=== PATIENT | male | born 1960 | race Caucasian/White ===

== ENCOUNTER 2017-07-22 07:52 | Day surgery (SDC) | payer OTHER ==
[2017-07-22] MEDS ORDERED: diphenhydrAMINE 25 MG CAP PO ONE ×2 (07:58→08:31)
[2017-07-22] MEDS ORDERED: NS 1,000 ML IV ONE (07:58)
[2017-07-22] MEDS ORDERED: ASPIRIN EC 325 MG TAB PO ONE ×2 (07:58→08:31)
[2017-07-22] MEDS ORDERED: DIAZEPAM 5 MG TAB PO ONE (07:58)
[2017-07-22] MEDS ORDERED: FAMOTIDINE 20 MG TAB PO ONE (07:58)
--- NOTE | 2017-07-22 08:26 | CPEKG ---
Heart Rate: 65 RR Interval: 923 P-R Interval: 132 QRSD Interval: 96 QT Interval: 404 QTC Interval: 421 P [place]: 66 QRS [place]: 72 T Wave [place]: 62 EKG Severity - NORMAL ECG - EKG Impression: SINUS RHYTHM Electronically Signed By: Hang Cerrato 23-Jul-2017 13:13:37
[2017-07-22] MEDS ORDERED: FAMOTIDINE 20 MG TAB ONE (08:31)
[2017-07-22] MEDS ORDERED: DIAZEPAM 5 MG TAB ONE (08:31)
[2017-07-22 08:37] LABS: % IMMATURE GRANULYOCYTES 0.2 % (0.0-1.1); ABSOLUTE IMMATURE GRANULOCYTES 0.01 10^3/uL (0.00-0.10); ADD DIFF? NO; ADD MORPH? NO; ADD SCAN? NO; ATYPICAL LYMPHOCYTE FLAG 0 (0-99); FRAGMENT RBC FLAG 0 (0-99); HEMOGLOBIN 15.8 g/dL (13.7-17.5); LEFT SHIFT FLG 0 (0-99); LIPEMIA HEMOLYSIS FLAG 90 (0-99); MEAN CELL HEMOGLOBIN 32.2 pg (27.9-34.1); MEAN CELL HEMOGLOBIN CONCENTR. 35.1 g/dL (32.4-36.7); MEAN CELL VOLUME 91.8 fL (81.5-99.8); MEAN PLATELET VOLUME 9.8 fL (8.7-11.7); PLATELET CLUMPS FLAG 10 (0-99); PLATELET COUNT 265 10^3/uL (150-400); RED CELL DISTRIBUTION WIDTH 12.8 % (11.5-15.2)
[2017-07-22 08:49] LABS: INR 1.07 (0.83-1.16); PROTIME(PATIENT) 13.8 SEC (12.0-15.0)
[2017-07-22 08:52] LABS: ANION GAP 10 mEq/L (8-16); CALCIUM 9.4 mg/dL (8.5-10.4); CARBON DIOXIDE 27 mEq/l (22-31); CHLORIDE 103 mEq/L (97-110); CHOLESTEROL 137 mg/dL (140-220); CHOLESTEROL/HDL RATIO 2.04 RATIO (1.00-4.97); CREATININE 0.9 mg/dL (0.7-1.3); GLOMERULAR FILTRATION RATE > 60; GLUCOSE 87 mg/dL (70-100); HIGH DENSITY LIPOPROTEIN 67 mg/dL (40-65); LDL/HDL RATIO 0.85 RATIO (1.00-3.64); LOW DENSITY LIPOPROTEIN 57 mg/dL (80-100); MAGNESIUM 2.1 mg/dL (1.6-2.3); NON-HIGH DENSITY LIPOPROTEIN 70 mg/dL (90-129); POTASSIUM 4.3 mEq/L (3.5-5.2); SODIUM 140 mEq/L (134-144); TRIGLYCERIDE 65 mg/dL (40-150); VERY LOW DENSITY LIPOPROTEINS 13 mg/dL (8-25)
[2017-07-22] MEDS ORDERED: fentaNYL 100 MCG/2 ML INJ ONE (09:06)
[2017-07-22] MEDS ORDERED: LIDOCAINE 1% 300 MG/30 ML SDV ONE (09:06)
[2017-07-22] MEDS ORDERED: MIDAZOLAM 2 MG/2 ML VIAL ONE (09:07)
[2017-07-22] MEDS ORDERED: VERAPAMIL 5 MG/2 ML VIAL ONE (09:07)
[2017-07-22] MEDS ORDERED: HEPARIN 10,000 UNIT/10 ML MDV ONE (09:07)
[2017-07-22] MEDS ORDERED: IOPAMIDOL (ISOVUE-370) 150 ML BTL IV ONE (09:07)
--- NOTE | 2017-07-22 09:41 | PDPROPOC ---
Sedation Plan of Care Sedation Plan of Care: vital signs stable, mental status noted, patient educated of risks, benefits, alternatives, patient can tolerate sedation ASA Classification: ASA 2 Planned drugs: fentanyl, midazolam Mallampati Score: Class 1 Mallampati Reference Image: Patient passed 3-3-2 rule?: Yes
--- NOTE | 2017-07-22 09:41 | PDHPUP ---
History & Physical Update H&P update statement: This history and physical update is based on an assessment of the patient which was completed after admission or registration (within 24 hours), but prior to the surgery/procedure. H&P update: H&P reviewed & patient examined, no change in patient's condition since H&P completed (Diagnostic angiogram only.)
--- NOTE | 2017-07-22 10:11 | PDDXCAT ---
Diagnostic Cath Note - . Date: 07/22/17 [employer] [employer] Operator: Harry Indication: Class I/II angina, intolerance to med therapy or failure to respond High-risk criteria on non-invasive testing: high-risk treadmill score (score<=- 11) - Procedure Access: right wrist Procedure: left heart catheterization, coronary angiography, left ventriculogram - Materials Left Heart Cath size: 5F Left Heart Cath materials: pigtail, other ([email or web address]) - Findings-Left Heart Catheterization LM: Unobstructed LAD: Luminal irregularities. LCX: Unobstructed. RCA: 40% mid RCA EDP: 12mmHg LVEF: 65% Wall motion: normal Complications: none Estimated blood loss: <50ml Closure method: TR Band Assessment: Procedure: See atached computer report. Contrast 85cc. Radiation: 3.1 minutes, 840mGy. Sedation: 25 ug fentanyl. 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 Normal LV systolic function. Plan: Aggressive medical therapy. Patient Problems: Problems Problem Status Onset Coronary artery disease Acute
== END 2017-07-22 14:23 | disposition home or self-care (01) ==
LOC: FCATH 07:52
PROVIDERS: ATTEND Internal Medicine Interventional Cardiology
PROC: 4A023N7 Measurement of Cardiac Sampling and Pressure, Left Heart, Percutaneous Approach (ICD-10-PCS; principal; 2017-07-22)
PROC: B2151ZZ Fluoroscopy of Left Heart using Low Osmolar Contrast (ICD-10-PCS; principal; 2017-07-22)
PROC: B2111ZZ Fluoroscopy of Multiple Coronary Arteries using Low Osmolar Contrast (ICD-10-PCS; principal; 2017-07-22)
DX: I25.119 Atherosclerotic heart disease of native coronary artery with unspecified angina pectoris (principal); R06.02 Shortness of breath; E78.5 Hyperlipidemia, unspecified; M81.0 Age-related osteoporosis without current pathological fracture; Z79.82 Long term (current) use of aspirin
CPT/HCPCS: 93005; 93458; C1769; J1644; J2250; J3010; Q9967